=== PATIENT | male | born 1980 | race Caucasian/White ===

== ENCOUNTER 2019-03-08 17:44 | Emergency (ER) | payer MEDICAID, OTHER ==
[~2019-03-08] VITALS: Ht 182.9 cm; Wt 84.1 kg
--- NOTE | 2019-03-08 18:00 | NUR ---
PT ELODIA WATSON [facility]. PT WAS TAKEN TO ER 13 AND PLACED ON THE MONITOR AND CONTINUOUS PULSE OX. PT'S RT HAND HAS A HANDCUFF. BILATERAL FEET ARE IN SHACKLES/CHAINS. PT IS AA7O X4. VSS. - ORTHOSTATICS IN THE FIELD. - TRAUMA IN THE FIELD.
[2019-03-08] MEDS ORDERED: ACETAMINOPHEN ES 500 MG TABLET PO ONE (18:30)
[2019-03-08] MEDS ORDERED: IV NS 0.9% 1,000 ML BAG IV ONE (18:30)
[2019-03-08] MEDS ORDERED: ONDANSETRON HCL/PF 4 MG/2 ML VIAL IVP ONE (18:30)
[2019-03-08] MEDS ORDERED: ACETAMINOPHEN ES 500 MG TABLET ONE (18:40)
[2019-03-08] MEDS ORDERED: ONDANSETRON HCL/PF 4 MG/2 ML VIAL ONE (18:40)
[2019-03-08 18:53] LABS: BASOPHILS # (AUTO) 0.1 /CMM (0.0-0.2); BASOPHILS % (AUTO) 0.5 % (0.0-2.0); EOSINOPHILS % (AUTO) 1.1 % (0.0-6.0); HEMATOCRIT 48 % (39-51); HEMOGLOBIN 16.7 g/dL (13.5-17.5); LYMPHOCYTES # (AUTO) 1.4 /CMM (0.8-4.8); LYMPHOCYTES % (AUTO) 12.1 % (20.0-44.0); MEAN CORPUSCULAR HGB CONC 35 g/dl (31.0-36.0); MEAN CORPUSCULAR VOLUME 87 fL (80-96); MONOCYTES # (AUTO) 1.3 /CMM (0.1-1.30); NEUTROPHILS # (AUTO) 8.7 /CMM (1.8-8.9); NEUTROPHILS % (AUTO) 75.3 % (43.0-81.0); PLATELET COUNT (AUTO) 278 /CMM (150-450); RED BLOOD CELL COUNT(AUTO) 5.55 MIL/uL (4.5-6.0); WHITE BLOOD COUNT (AUTO) 11.6 K/uL (4.3-11.0)
--- NOTE | 2019-03-08 19:08 | NUR ---
PT LEFT FOR CT.
[2019-03-08 19:11] LABS: ALBUMIN 4.2 g/dL (3.4-5.0); BILIRUBIN,DIRECT 0.2 mg/dL (0.0-0.2); BILIRUBIN,TOTAL 0.9 mg/dL (0.2-1.0); CALCIUM, SERUM 8.9 mg/dL (8.5-10.1); POTASSIUM 3.5 mmol/L (3.5-5.1)
--- NOTE | 2019-03-08 19:19 | NUR ---
PT RETURNED FROM CT.
--- NOTE | 2019-03-08 20:30 | NUR ---
PT REC'D JUICE AND A SANDWICH. PT TOLERATED PO WELL.
--- NOTE | 2019-03-08 20:53 | NUR ---
IV removed. Catheter intact. 2X2 APPLIED AND SECURED WITH TAPE. NO BLEEDING NOTED. PT WAS DISCHARGED TO THE [facility] IN CUSTODY in stable condition. Written and verbal after care instructions given. Patient verbalizes understanding of instruction. PT AMBULATED OUT WITH A STEADY GAIT. VSS.
[2019-03-08 20:59] VITALS: BP 146/85
== END 2019-03-08 21:00 ==
LOC: ER 17:53
DX: R55 Syncope and collapse (principal)
CPT/HCPCS: 36415; 70450; 71045; 80048; 80076; 85025; 93005; 96361; 96374; 99284; J2405; J7030